=== PATIENT | female | born 1940 | race Caucasian/White ===

== ENCOUNTER 2017-06-11 17:23 | Emergency (ER) | payer OTHER ==
[~2017-06-11 17:23] MED LIST: CIPR500T2 PO; SULF1TAB47 PO
[2017-06-11 17:27] VITALS: BP 195/92; PULSE 88; RESP 20; TEMP 98.3; O2SAT 97
[2017-06-11] MEDS ORDERED: PRAD150C PO (17:37)
[2017-06-11] MEDS ORDERED: ATOR80TA45 PO (17:37)
[2017-06-11] MEDS ORDERED: LATA0.002 EACH EYE (17:37)
[2017-06-11] MEDS ORDERED: METO50TA PO (17:37)
--- NOTE | 2017-06-11 18:32 | PD ---
HPI Chief Complaint: Laceration/Skin Injury Time Seen by Provider: 18:03 Travel History International Travel<30 days: No Contact w/Intl Traveler<30days: No Traveled to known affect area: No History of Present Illness HPI 76 year old female here with laceration to the left thumb caused by kitchen knife [employer]. She reports pain at the site of the laceration. She reports normal sensation & full ROM of the digit. tetanus is up to date. No aggravating or alleviating factors. PFSH Past Medical History Hx Anticoagulant Therapy: Yes (PRADAXA) Past Surgical History Cholecystectomy: Yes Hysterectomy: Yes Other Surgery: Yes (BACK) Social History Alcohol Use: No Tobacco Use: No Substance Use: No Allergies-Medications (Allergen,Severity, Reaction): Coded Allergies: No Known Allergies (Verified Allergy, Mild, 06/11/17) morphine (Verified Allergy, Unknown, 06/11/17) Reported Meds & Prescriptions Reported Meds & Active Scripts Active Reported Latanoprost Opth Drops (Latanoprost) 0.005% Drops 1 Drop EACH EYE HS Refrigerate until opened. Pradaxa (Dabigatran) 150 Mg Cap 150 Mg PO DAILY Atorvastatin (Atorvastatin Calcium) 80 Mg Tab 80 Mg PO HS Metoprolol Tartrate 50 Mg Tab 50 Mg PO DAILY Review of Systems Except as stated in HPI: all other systems reviewed are Neg Physical Exam Narrative GENERAL: alert well appearing female. SKIN: 2 cm flap laceration to left distal thumb. the extremity is neurovascularly intact. Full ROM no tendon injury suspected. Brisk cap refill HEAD: Normocephalic. NECK: Supple, trachea midline. No JVD or lymphadenopathy. MUSCULOSKELETAL: No cyanosis, or edema. Data Data Last Documented VS Vital Signs Date Time Temp Pulse Resp B/P (MAP) Pulse Ox O2 Delivery O2 Flow Rate FiO2 06/11/17 17:27 98.3 88 20 195/92 (126) 97 MDM Medical Decision Making Medical Screen Exam Complete: Yes Emergency Medical Condition: Yes Differential Diagnosis thumb laceration, nail bed injury, tendon injury Narrative Course 76 year old female here for L thumb laceration caused by kitchen knife. Patient is anticoagulated. The bleeding is well controlled. There is no tendon injury. laceration repair performed. Procedures Procedure Narrative LACERATION LOCATION: Left thumb LENGTH: 2 cm NUMBER OF STITCHES/BEHZAD: 6 REPAIR: The area of the laceration was prepped with Betadine and sterilely draped. Digital block with 1% lidocaine . The wound was copiously irrigated and explored without evidence of foreign body, tendon injury or neurovascular injury. The wound was closed using [3-0 Ethilon ]. This was a single layer repair. A sterile dressing was applied. The patient was advised to keep the dressing clean and dry. Patient tolerated the procedure well. Diagnosis Primary Impression: Thumb laceration Qualified Codes: S61.012A - Laceration without foreign body of left thumb without damage to nail, initial encounter Referrals: Primary Care Physician Additional Instructions: sutures need to be removed in 7 days do not submerge the wound in water. you should cleanse the area with soap & water daily starting tomorrow. cover the area with a clean dry dressing Disposition: 01 DISCHARGE HOME Condition: Stable Ariana Marshall Jun 11, 2017 18:32
== END 2017-06-11 18:44 | disposition home or self-care (01) ==
LOC: PHEFT 17:23
DX: S61.012A Laceration without foreign body of left thumb without damage to nail, initial encounter (principal); W26.0XXA Contact with knife, initial encounter
CPT/HCPCS: 12001